=== PATIENT | male | born 1945 | race American Indian/Alaskan Native ===

== ENCOUNTER 2018-01-05 01:57 | Emergency (ER) | payer MEDICARE, OTHER ==
[2018-01-05] MEDS ORDERED: ZOFRAN ODT PO ONE ×2 (02:07→06:31)
--- NOTE | 2018-01-05 02:44 | XRay Report ---
FINAL REPORT PROCEDURE: XR CHEST ROUTINE 2V TECHNIQUE: PA and lateral chest radiographs were obtained. CPT 62133 HISTORY: chest congestion JUSTIN COMPARISON: No prior studies are available for comparison. FINDINGS: Heart: Normal. Mediastinum/Vessels: Normal. Lungs/Pleural space: Normal. Bony thorax: No acute osseous abnormality. Other: IMPRESSION: Normal examination.
[2018-01-05] MEDS ORDERED: ZOFRAN ODT ONE ×2 (04:53→06:36)
--- NOTE | 2018-01-05 07:41 | Emergency Department Report ---
Vomiting/Diarrhea - HPI Chief Complaint: Nausea/Vomiting/Diarrhea Stated Complaint: NAUSEA Time Seen by Provider: 01/05/18 07:15 Duration: 3 Days Severity: moderate Nausea/Vomiting Severity: Moderate Diarrhea Severity: None Pain Severity: None Symptoms: Yes Able to Tolerate Fluids, No Watery Diarrhea, No Bloody diarrhea, No Fever, No Recent Unusual Foods, No Recent Untreated Water, No Recent use of Antibiotics, No Family w/ Similar Symptoms, No Contacts w/ Similar Symptoms, No Rash, No Hematuria, No Recent URI Symptoms Other History: This is a 72-year-old -[place] male who presents with nausea and vomiting for 3 days. Past medical history of diabetes type 2 and hypertension. Patient states he is also some discomfort to chest with vomiting. He denies recent sick contacts or recent travel. Patient states he has tried everything [id number] with no improvement of symptoms. He denies abdominal pain, fever, shortness of breath, diarrhea or tarry stools. ED Review of Systems ROS: Stated complaint: NAUSEA Other details as noted in HPI Constitutional: denies: chills, fever Respiratory: denies: cough, shortness of breath, wheezing Cardiovascular: chest pain (chest discomfort). denies: palpitations, edema, syncope Gastrointestinal: nausea, vomiting. denies: abdominal pain, diarrhea Neurological: denies: headache, weakness, paresthesias Psychiatric: denies: anxiety, depression ED Past Medical Hx - Past Medical History Previous Medical History?: Yes Hx Hypertension: Yes Hx Diabetes: Yes - Surgical History Past Surgical History?: Yes Additional Surgical History: shoulder - Social History Smoking Status: Former Smoker Substance Use Type: Alcohol, Marijuana - Medications Home Medications: Home Medications Medication Instructions Recorded Confirmed Last Taken Type Ondansetron [Zofran Odt] 4 mg PO TID #10 tab.rapdis 01/05/18 Unknown Rx Vomiting Diarrhea Exam - Exam General: Vital signs noted. No distress. Alert and acting appropriately. HEENT: Yes Pharyngeal Erythema, Yes Moist Mucous Membranes (turbinates mildly congested), Yes Rhinorrhea (clear discharge), No Pharyngeal Exudates, No Conjuctival Injection, No Frontal Tenderness, No Maxillary Tenderness Neck: No Adenopathy, No Rigidity Lungs: Yes Clear Lung Sounds, Yes Good Air Exchange, No Wheezes, No Stridor, No Cough, No Nasal Flaring, No Retractions, No Use of Accessory Muscles Heart exam: Regular: Yes, Murmur: No, Tachycardia: No Abdomen: Tenderness: Yes (left upper quadrant), Peritoneal Signs: No, Distention : No, Hyperactive Bowel sounds: No Skin exam: Rash: No, Edema: No, Normal turgor: Yes Neurologic: Alert and oriented, no deficits. Musculoskeletal: Unremarkable. ED Course Vital Signs 01/05/18 02:04 Temperature 97.4 F L Pulse Rate 88 Respiratory 20 Rate Blood Pressure 150/100 O2 Sat by Pulse 100 Oximetry ED Medical Decision Making - Lab Data Result diagrams: 01/05/18 07:44 01/05/18 07:44 - Radiology Data Radiology results: report reviewed, image reviewed FINAL REPORT PROCEDURE: XR CHEST ROUTINE 2V TECHNIQUE: PA and lateral chest radiographs were obtained. CPT 26041 HISTORY: chest congestion JUSTIN COMPARISON: No prior studies are available for comparison. FINDINGS: Heart: Normal. Mediastinum/Vessels: Normal. Lungs/Pleural space: Normal. Bony thorax: No acute osseous abnormality. Other: IMPRESSION: Normal examination. CT ABDOMEN WITHOUT CONTRAST: HISTORY: abdominal pain. COMPARISON: none. TECHNIQUE: Helical CT in 1.25mm intervals without IV contrast. Sagittal and coronal reconstructions. FINDINGS: Lung bases: Normal. Liver: Normal. Biliary system: Normal. Pancreas: Normal. Spleen: Normal. Kidneys: Bilateral renal vascular calcifications are noted. There appear to be 1 or 2 calyceal stones in both kidneys. The largest stone measures 6 mm in the inferior left kidney. The proximal ureters are unremarkable. Adrenal glands: The right adrenal gland is normal. A 1 cm low density left adrenal nodule is identified which probably represents an adrenal adenoma. Aorta: Mild diffuse calcifications. No aneurysm. Intestines: There are a few scattered diverticula in the visualized colon. Mild fecal retention. No evidence for focal inflammation or obstruction. Appendix: The appendix is partially visualized which appears unremarkable. Pelvic viscera: Normal. Ascites: None. Adenopathy: None. Musculoskeletal: Mild thoracolumbar spondylosis. No fracture or suspicious bony lesion is identified. IMPRESSION: No acute inflammatory process is identified. Moderate atherosclerotic disease and arterial structures. Mild colonic diverticulosis. Bilateral nephrolithiasis is suspected, nonobstructing. - Medical Decision Making Patient is stable and was examined by me. Past medical history of diabetes type 2 and hypertension. Blood pressure is elevated on arrival. Obtained labs , CT of abdomen, and x-ray of chest. A lipase slightly elevated. Normal chest x-ray, patient informed of CT results and given a copy of the report. Given zofran odt 4 mg po twice in ER. Patient states he is feeling much better. Plan to start zofran for gastroenteritis. Discussed plan with patient and agreed to plan. No further questions noted by the patient. Discharged home in stable condition. Follow up with PCP in 2-3 days. Critical care attestation.: If time is entered above; I have spent that time in minutes in the direct care of this critically ill patient, excluding procedure time. ED Disposition Clinical Impression: Nausea and vomiting in adult, Gastroenteritis Disposition: TO HOME OR SELFCARE Is pt being admited?: No Does the pt Need Aspirin: No Condition: Stable Instructions: Gastroenteritis (ED), Acute Nausea and Vomiting (ED) Additional Instructions: Frequent hand washing is important to reduce spread. Prompt disinfection of contaminated surfaces with household chlorine bleach- based solar fabrication technician and washing of soiled clothing and bedding should be advised. If food or water is thought to be contaminated, it should be avoided. Increase fluid intake. Drinks high in sugars such as carbonated soft drinks, fruit juice, and highly sugared liquids should be avoided. Prescriptions: Ondansetron [Zofran Odt] 4 mg PO TID #10 tab.rapdis Referrals: KWAKU STALLINGS MD [Staff Physician] - 3-5 Days [facility] [place] [Outside] - 3-5 Days [facility] [Outside] - 3-5 Days Time of Disposition: 10:09 Print Language: CAMBODIAN
[2018-01-05] MEDS ORDERED: PROCARDIA XL PO ONE (07:42)
[2018-01-05 07:54] LABS: Basophils # (Auto) 0.1 K/mm3 (0.0-0.1); Eosinophils % (Auto) 0.4 % (0.0-4.3); Hematocrit 41.7 % (35.5-45.6); Hemoglobin 13.8 gm/dl (11.8-15.2); Lymphocytes # (Auto) 1.7 K/mm3 (1.2-5.4); Lymphocytes % (Auto) 26.7 % (13.4-35.0); Mean Corpuscular HGB Conc 33 % (32-34); Mean Corpuscular Hemoglobin 29 pg (28-32); Mean Corpuscular Volume 89 fl (84-94); Monocytes # (Auto) 0.7 K/mm3 (0.0-0.8); Platelet Count 268 K/mm3 (140-440); Red Blood Count 4.69 M/mm3 (3.65-5.03); Red Cell Distribution Width 15.3 % (13.2-15.2)
[2018-01-05 08:08] LABS: Alanine Aminotransferase 9 units/L (7-56); BUN/Creatinine Ratio 17; Blood Urea Nitrogen 19 mg/dL (9-20); Calcium 9.3 mg/dL (8.4-10.2); Hemolysis Index 9
--- NOTE | 2018-01-05 08:58 | Cat Scan Report ---
CT ABDOMEN WITHOUT CONTRAST: HISTORY: abdominal pain. COMPARISON: none. TECHNIQUE: Helical CT in 1.25mm intervals without IV contrast. Sagittal and coronal reconstructions. FINDINGS: Lung bases: Normal. Liver: Normal. Biliary system: Normal. Pancreas: Normal. Spleen: Normal. Kidneys: Bilateral renal vascular calcifications are noted. There appear to be 1 or 2 calyceal stones in both kidneys. The largest stone measures 6 mm in the inferior left kidney. The proximal ureters are unremarkable. Adrenal glands: The right adrenal gland is normal. A 1 cm low density left adrenal nodule is identified which probably represents an adrenal adenoma. Aorta: Mild diffuse calcifications. No aneurysm. Intestines: There are a few scattered diverticula in the visualized colon. Mild fecal retention. No evidence for focal inflammation or obstruction. Appendix: The appendix is partially visualized which appears unremarkable. Pelvic viscera: Normal. Ascites: None. Adenopathy: None. Musculoskeletal: Mild thoracolumbar spondylosis. No fracture or suspicious bony lesion is identified. IMPRESSION: No acute inflammatory process is identified. Moderate atherosclerotic disease and arterial structures. Mild colonic diverticulosis. Bilateral nephrolithiasis is suspected, nonobstructing.
[2018-01-05 09:07] VITALS: BP 158/80
== END 2018-01-05 10:18 | disposition home or self-care (01) ==
LOC: ED 01:57
DX: K52.9 Noninfective gastroenteritis and colitis, unspecified (principal); I10 Essential (primary) hypertension; E11.9 Type 2 diabetes mellitus without complications; Z87.891 Personal history of nicotine dependence
CPT/HCPCS: 36415; 71046; 74150; 80053; 83690; 85025; Q0162